=== PATIENT | male | born 1980 | race American Indian/Alaskan Native ===

== ENCOUNTER 2021-12-03 19:53 | Emergency (ER) | payer SELFPAY ==
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
== END 2021-12-03 23:43 | disposition home or self-care (01) ==
LOC: ED 19:53
DX: S60.571A Other superficial bite of hand of right hand, initial encounter (principal); Y04.1XXA Assault by human bite, initial encounter; Y93.89 Activity, other specified; Y92.89 Other specified places as the place of occurrence of the external cause; Y99.8 Other external cause status
CPT/HCPCS: 99282